=== PATIENT | male | born 1940 | race Caucasian/White ===

== ENCOUNTER 2017-05-12 13:43 | Observation (INO) | payer MEDICARE, BC ==
[2017-05-12 14:13] LABS: BASOPHILS % (AUTO) 0 % (0-3); EOSINOPHILS % (AUTO) 1 % (0-9); HEMATOCRIT 39 % (39-53); MEAN CORPUSCULAR HGB CONC 34.1 gm/dl (32.0-36.0); MEAN CORPUSCULAR VOLUME 89 fL (80-100); MONOCYTES % (AUTO) 16.9 % (0-12); NEUTROPHILS % (AUTO) 73.5 % (37-80)
[2017-05-12] MEDS: SODIUM CHLORIDE 0.9% 1000ML 1,000 ML IV SCH ×2 (14:36→22:39)
[2017-05-12 14:38] LABS: ALBUMIN 3.5 gm/dl (3.4-5.0); POTASSIUM 4.3 mMol/L (3.5-5.1); THYROID STIMULATING HORMONE 3.726 uIU/ml (0.358-3.740)
[2017-05-12] MEDS ORDERED: ASPIRIN 81 MG CHEWABLE CTB PO ONE (15:23)
[2017-05-12] MEDS ORDERED: ASPIRIN 81 MG CHEWABLE CTB ONE (15:24)
[2017-05-12] MEDS ORDERED: METOPROLOL SUCCINATE 50 MG ER TAB ONE (19:41)
[2017-05-12] MEDS: METOPROLOL SUCCINATE 25 MG TAB.ER.24H PO SCH ×2 (20:47→20:49)
[2017-05-12] MEDS ORDERED: APAP/HYDROCODONE 325/5 TAB PO PRN (20:55)
[2017-05-13] MEDS: SODIUM CHLORIDE 0.9% 1000ML 1,000 ML IV SCH (07:09)
[2017-05-13 07:42] LABS: CALCIUM 7.6 mg/dl (8.5-10.1); POTASSIUM 3.8 mMol/L (3.5-5.1)
[2017-05-13 07:43] LABS: APPEARANCE,URINE Clear; BILIRUBIN,URINE NEGATIVE (NEGATIVE); COLOR,URINE Yellow; GLUCOSE, URINE (UA) NEGATIVE (NEGATIVE); KETONES,URINE NEGATIVE (NEGATIVE); LEUKOCYTE ESTERASE ,URINE NEGATIVE (NEGATIVE); NITRATE,URINE NEGATIVE (NEGATIVE); OCCULT BLOOD,URINE 1+ (NEG-TRACE); PH,URINE 5.5; UROBILINOGEN,URINE 0.2 (0.2-1.0 EU)
[2017-05-13 07:46] LABS: HEMATOCRIT 37 % (39-53); MEAN CORPUSCULAR HGB CONC 34.2 gm/dl (32.0-36.0); MEAN CORPUSCULAR VOLUME 89 fL (80-100)
[2017-05-13 08:36] LABS: BASOPHILS % (MANUAL) 1 % (0-3); EOSINOPHILS % (MANUAL) 4 % (0-9); LYMPHOCYTES % (MANUAL) 12 % (10-50); NORMAL RBCS PRESENT
[2017-05-13 08:40] LABS: RBC,URINE 0-1 (0-3AV/HPF); WBC,URINE 0-1 (0-5AV/HPF)
[2017-05-13] MEDS ORDERED: LOSARTAN POTASSIUM 50 MG TAB PO SCH (09:00)
[2017-05-13] MEDS ORDERED: METOPROLOL SUCCINATE 50 MG ER TAB PO SCH (09:00)
[2017-05-13] MEDS ORDERED: ENOXAPARIN 30 MG SOL SC SCH (09:00)
[2017-05-13] MEDS: METFORMIN HYDROCHLORIDE 500 MG TAB PO SCH ×2 (09:05→09:06)
[2017-05-13 09:46] VITALS: BP 143/87; PULSE 92; RESP 16; TEMP 97.7; O2SAT 92
== END 2017-05-13 13:40 | disposition home or self-care (01) | DRG 312 ==
LOC: ED 13:43 → ACUTE CARE 17:01 → UNDOADMOB 17:01 → ACUTE CARE 17:15
PROVIDERS: ADMIT Family Medicine; ATTEND Family Medicine
DX: R55 Syncope and collapse (principal); R06.81 Apnea, not elsewhere classified; E11.9 Type 2 diabetes mellitus without complications; I10 Essential (primary) hypertension; R79.89 Other specified abnormal findings of blood chemistry
CPT/HCPCS: 36415; 71045; 80048; 80053; 81001; 82550; 82962; 84443; 84484; 85007; 85025; 85027; 93005; 93012; 94762; 96365; 99285; 99291; A9270-GY; J1650

== ENCOUNTER 2017-05-14 11:09 | Emergency (ER) | payer MEDICARE, BC ==
[2017-05-14] MEDS ORDERED: SODIUM CHLORIDE 0.9% 1000ML 1,000 ML IV SCH (11:30)
[2017-05-14 11:51] LABS: BASOPHILS % (AUTO) 1 % (0-3); EOSINOPHILS % (AUTO) 0 % (0-9); HEMATOCRIT 40 % (39-53); MEAN CORPUSCULAR HGB CONC 34.3 gm/dl (32.0-36.0); MEAN CORPUSCULAR VOLUME 88 fL (80-100); MONOCYTES % (AUTO) 12.4 % (0-12); NEUTROPHILS % (AUTO) 75.2 % (37-80)
[2017-05-14] MEDS ORDERED: SODIUM CHLORIDE 0.9% 1000ML 1,000 ML IV NR (12:00)
[2017-05-14 12:04] LABS: ALBUMIN 3.3 gm/dl (3.4-5.0); CALCIUM 7.9 mg/dl (8.5-10.1)
[2017-05-14] MEDS ORDERED: SODIUM CHLORIDE 0.9% 1000ML 1,000 ML IV ONE (12:15)
[2017-05-14] MEDS ORDERED: SODIUM CHLORIDE 0.9% 50 ML 25 ML IV PRN (13:13)
[2017-05-14] MEDS ORDERED: LEVOFLOXACIN 25 MG/ML 750 MG in SODIUM CHLORIDE 0.9% 250 ML 150 ML IV ONE (13:13)
[2017-05-14 13:18] LABS: APPEARANCE,URINE Clear; BILIRUBIN,URINE NEGATIVE (NEGATIVE); COLOR,URINE Yellow; GLUCOSE, URINE (UA) 2+ (NEGATIVE); KETONES,URINE TRACE (NEGATIVE); LEUKOCYTE ESTERASE ,URINE NEGATIVE (NEGATIVE); NITRATE,URINE NEGATIVE (NEGATIVE); OCCULT BLOOD,URINE 1+ (NEG-TRACE); PH,URINE 5.5
[2017-05-14] MEDS ORDERED: LEVOFLOXACIN 25 MG/ML SOL IV ONE (13:26)
[2017-05-14 14:01] VITALS: RESP 22
[2017-05-14 14:16] VITALS: BP 104/65; PULSE 81; O2SAT 93
[2017-05-14 15:33] LABS: RBC,URINE 0-1 (0-3AV/HPF); WBC,URINE NEGATIVE (0-5AV/HPF)
[2017-05-14 17:57] VITALS: TEMP 100.9
== END 2017-05-14 15:20 | disposition home or self-care (01) | DRG 195 ==
LOC: ED 11:09
DX: J18.1 Lobar pneumonia, unspecified organism (principal); R41.0 Disorientation, unspecified
CPT/HCPCS: 71046; 71250; 80053; 81001; 85025; 87040; 87088; 87804; 99285; J1956